=== PATIENT | male | born 1955 | race Native Hawaiian/Other Pacific Islander ===

== ENCOUNTER 2017-07-06 07:10 | Day surgery (SDC) | payer OTHER ==
[~2017-07-06 07:10] MED LIST: *LORTAB 7.5/5001 TAB PO; AMOX500C85 PO; ARMOUR THYROID120 MG PO; ASA LOW STR81 MG PO; FLUT0.05 NAS; LISI20TA11 PO; TEMA15CA19 PO
== END 2017-07-06 09:36 | disposition home or self-care (01) ==
LOC: OR 07:10
PROC: 08RJ3JZ Replacement of Right Lens with Synthetic Substitute, Percutaneous Approach (ICD-10-PCS; principal; 2017-07-06)
DX: H25.811 Combined forms of age-related cataract, right eye (principal)
CPT/HCPCS: 66984; J0171; V2632

== ENCOUNTER 2019-12-03 08:57 | Emergency (ER) | payer OTHER ==
[~2019-12-03] VITALS: Ht 167.6 cm; Wt 83.9 kg
[2019-12-03 10:04] VITALS: BP 141/76; TEMP 98
== END 2019-12-03 10:13 | disposition home or self-care (01) ==
LOC: ED 08:57
DX: N13.2 Hydronephrosis with renal and ureteral calculous obstruction (principal); Z87.442 Personal history of urinary calculi
CPT/HCPCS: 96372; 99283; J1885

== ENCOUNTER 2021-02-06 10:45 | Outpatient (CLI) | payer OTHER | END 2021-02-06 19:45 | disposition home or self-care (01) | LOC: US 10:45 | PROVIDERS: ATTEND Internal Medicine | DX: E03.8 Other specified hypothyroidism (principal) ==

== ENCOUNTER 2021-04-29 18:19 | Emergency (ER) | payer OTHER ==
[~2021-04-29] VITALS: Ht 167.6 cm; Wt 86.2 kg
[2021-04-29 18:25] VITALS: TEMP 98.1
[2021-04-29 20:15] VITALS: BP 145/85
== END 2021-04-29 20:15 | disposition home or self-care (01) ==
LOC: ED 18:19
PROC: 0HCGXZZ Extirpation of Matter from Left Hand Skin, External Approach (ICD-10-PCS; principal; 2021-04-29)
PROC: 0HQGXZZ Repair Left Hand Skin, External Approach (ICD-10-PCS; 2021-04-29)
DX: S60.451A Superficial foreign body of left index finger, initial encounter (principal); W45.8XXA Other foreign body or object entering through skin, initial encounter; Y92.89 Other specified places as the place of occurrence of the external cause
CPT/HCPCS: 90715; 99282; J2001

== ENCOUNTER 2022-06-11 09:48 | Outpatient (CLI) | payer OTHER | END 2022-06-11 18:55 | disposition home or self-care (01) | LOC: US 09:48 | PROVIDERS: ATTEND Internal Medicine | DX: E05.80 Other thyrotoxicosis without thyrotoxic crisis or storm (principal) ==

== ENCOUNTER 2022-07-03 14:24 | Emergency (ER) | payer OTHER ==
[~2022-07-03] VITALS: Ht 167.6 cm; Wt 79.4 kg
[2022-07-03 14:30] VITALS: TEMP 98
[2022-07-03 15:06] LABS: PLATELET COUNT 178 K/uL (142-355)
[2022-07-03 15:09] LABS: POTASSIUM 4.8 mmol/L (3.6-5.2)
[2022-07-03 15:14] LABS: PARTIAL THROMBOPLASTIN TIME 29.6 SECONDS (23.9-36.7)
[2022-07-03 15:20] VITALS: BP 134/84
== END 2022-07-03 15:20 | disposition short-term general hospital (02) ==
LOC: ED 14:24
PROVIDERS: Family Medicine
DX: R07.89 Other chest pain (principal); I21.3 ST elevation (STEMI) myocardial infarction of unspecified site
CPT/HCPCS: 80053; 82550; 84484; 85027; 85610; 85730; 93005; 96361; 96374; 96375; 99285; J1644; J2405